=== PATIENT | male | born 1955 | race Caucasian/White ===

== ENCOUNTER 2021-05-12 10:24 | Emergency (ER) | payer MEDICARE, OTHER ==
[~2021-05-12] VITALS: Ht 177.8 cm; Wt 56.0 kg
[2021-05-12] MEDS ORDERED: NS 1,000 ML IV ONE (12:25)
[2021-05-12] MEDS ORDERED: LORazepam 2 MG/ML VIAL IV STA (12:42)
[2021-05-12 13:05] LABS: BASO % 0.3 % (0.0-1.0); EOS # 0.1 10^3/uL (0.0-0.5); HEMATOCRIT 41.1 % (42.0-52.0); HEMOGLOBIN 13.9 g/dl (13.5-17.5); LYMPH # 2.1 10^3/uL (1.5-5.0); LYMPH % 26.2 % (24.0-44.0); MEAN CORPUSCULAR HEMOGLOBIN 33.7 pg (27.0-33.0); MEAN CORPUSCULAR HGB CONC 33.8 g/dl (32.0-36.5); MEAN CORPUSCULAR VOLUME 99.8 fl (80.0-96.0); MONO # 0.8 10^3/uL (0.0-0.8); MONO % 10.6 % (2.0-8.0); NEUTROPHILS # 4.8 10^3/uL (1.5-8.5); NEUTROPHILS % 61.8 % (36.0-66.0); PLATELET COUNT, AUTOMATED 150 10^3/uL (150-450); RED BLOOD COUNT 4.12 10^6/uL (4.30-6.10); WHITE BLOOD COUNT 7.8 10^3/uL (4.0-10.0)
[2021-05-12 13:16] LABS: ERYTHROCYTE SEDIMENTATION RATE 39 mm/hr (0-20)
[2021-05-12] MEDS ORDERED: ISOVUE-370 76% 100ML VIAL As Ordered ONE (13:16)
[2021-05-12 15:12] VITALS: BP 170/81
== END 2021-05-12 15:32 | disposition home or self-care (01) ==
LOC: M ED 10:24
DX: R04.2 Hemoptysis (principal); I10 Essential (primary) hypertension; R91.1 Solitary pulmonary nodule
CPT/HCPCS: 71046; 71275; 80047; 85025; 85652; 86140; 87070; 87077; 87116; 87186; 87205; 87206; 96360; 96361; 99284; Q9967

== ENCOUNTER → 2021-05-27 | Outpatient (REF) | payer MEDICARE | LOC: M LAB REF 12:58 | PROVIDERS: ATTEND Internal Medicine Pulmonary Disease | DX: R91.8 Other nonspecific abnormal finding of lung field (principal) ==

== ENCOUNTER → 2021-07-08 | Outpatient (CLI) | payer MEDICARE | LOC: M PLAIMG 09:12 | PROVIDERS: ATTEND Internal Medicine Pulmonary Disease | DX: R91.8 Other nonspecific abnormal finding of lung field (principal) ==

== ENCOUNTER → 2021-11-23 | Outpatient (CLI) | payer OTHER | LOC: M PLAIMG 08:53 | PROVIDERS: ATTEND Internal Medicine Pulmonary Disease | DX: R91.8 Other nonspecific abnormal finding of lung field (principal); I70.0 Atherosclerosis of aorta; I25.10 Atherosclerotic heart disease of native coronary artery without angina pectoris; J43.2 Centrilobular emphysema ==

== ENCOUNTER → 2022-05-10 | Outpatient (CLI) | payer MEDICARE, OTHER | LOC: M LABSMTC 08:56 | PROVIDERS: ATTEND Anesthesiology | DX: Z01.812 Encounter for preprocedural laboratory examination (principal); Z11.52 Encounter for screening for COVID-19 ==

== ENCOUNTER 2022-05-15 08:21 | Day surgery (SDC) | payer MEDICARE ==
[~2022-05-15] VITALS: Ht 172.7 cm; Wt 53.5 kg
[~2022-05-15 08:21] MED LIST: NS 1,000 ML IV ONE
[2022-05-15] MEDS ORDERED: propofoL 200 MG/20 ML VIAL As Ordered ONE (09:21)
[2022-05-15] MEDS ORDERED: LIDOCAINE 2% 100MG/5ML SDV (FOR ANES.) As Ordered ONE (09:21)
[2022-05-15 10:25] VITALS: BP 110/61
== END 2022-05-15 10:30 | disposition home or self-care (01) ==
LOC: M OPP 08:21
PROVIDERS: ATTEND Internal Medicine Gastroenterology
DX: D12.6 Benign neoplasm of colon, unspecified (principal); K64.0 First degree hemorrhoids; K57.30 Diverticulosis of large intestine without perforation or abscess without bleeding; R19.5 Other fecal abnormalities; K22.89 Other specified disease of esophagus; K44.9 Diaphragmatic hernia without obstruction or gangrene; I10 Essential (primary) hypertension; B19.20 Unspecified viral hepatitis C without hepatic coma; F17.200 Nicotine dependence, unspecified, uncomplicated; J44.9 Chronic obstructive pulmonary disease, unspecified; Z86.19 Personal history of other infectious and parasitic diseases; Z79.51 Long term (current) use of inhaled steroids; Z79.899 Other long term (current) drug therapy

== ENCOUNTER → 2022-06-15 | Outpatient (CLI) | payer MEDICARE | LOC: M RAD 08:39 | PROVIDERS: ATTEND Internal Medicine Pulmonary Disease | DX: R91.8 Other nonspecific abnormal finding of lung field (principal) ==

== ENCOUNTER → 2022-08-21 | Outpatient (CLI) | payer MEDICARE | LOC: M PLARAD 08:57 | PROVIDERS: ATTEND Internal Medicine Pulmonary Disease | DX: R91.8 Other nonspecific abnormal finding of lung field (principal); K57.30 Diverticulosis of large intestine without perforation or abscess without bleeding | CPT/HCPCS: 78815; A9552 ==

== ENCOUNTER → 2022-09-02 | Outpatient (REF) | payer MEDICARE | LOC: M LAB REF 13:06 | PROVIDERS: ATTEND Internal Medicine Pulmonary Disease | DX: R91.8 Other nonspecific abnormal finding of lung field (principal) ==

== ENCOUNTER → 2022-09-03 | Outpatient (REF) | payer MEDICARE | LOC: M LAB REF 13:09 | PROVIDERS: ATTEND Internal Medicine Pulmonary Disease | DX: R91.8 Other nonspecific abnormal finding of lung field (principal) ==

== ENCOUNTER → 2022-09-04 | Outpatient (REF) | payer MEDICARE | LOC: M LAB REF 13:02 | PROVIDERS: ATTEND Internal Medicine Pulmonary Disease | DX: R91.8 Other nonspecific abnormal finding of lung field (principal) ==

== ENCOUNTER → 2022-09-08 | Outpatient (CLI) | payer MEDICARE | LOC: M LAB 08:53 | PROVIDERS: ATTEND Internal Medicine Pulmonary Disease | DX: R91.8 Other nonspecific abnormal finding of lung field (principal) ==

== ENCOUNTER → 2022-11-27 | Outpatient (CLI) | payer MEDICARE | LOC: M RAD 08:15 | PROVIDERS: ATTEND Internal Medicine Pulmonary Disease | DX: R91.8 Other nonspecific abnormal finding of lung field (principal); J84.10 Pulmonary fibrosis, unspecified; J44.9 Chronic obstructive pulmonary disease, unspecified ==

== ENCOUNTER → 2023-07-13 | Outpatient (CLI) | payer MEDICARE | LOC: M RAD 09:20 | PROVIDERS: ATTEND Internal Medicine Pulmonary Disease | DX: R91.8 Other nonspecific abnormal finding of lung field (principal); J43.9 Emphysema, unspecified ==

== ENCOUNTER → 2024-01-22 | Outpatient (CLI) | payer MEDICARE | LOC: M PLAIMG 09:50 | PROVIDERS: ATTEND Internal Medicine Pulmonary Disease | DX: R91.8 Other nonspecific abnormal finding of lung field (principal); I25.10 Atherosclerotic heart disease of native coronary artery without angina pectoris; I70.0 Atherosclerosis of aorta; J47.9 Bronchiectasis, uncomplicated ==

== ENCOUNTER → 2025-02-02 | Outpatient (CLI) | payer MEDICARE | LOC: M PLAIMG 09:11 | PROVIDERS: ATTEND Internal Medicine Pulmonary Disease | DX: R91.8 Other nonspecific abnormal finding of lung field (principal) ==